=== PATIENT | female | born 1940 | race African-American/Black ===

== ENCOUNTER 2021-09-01 20:07 | Emergency (ER) | payer OTHER, MEDICAID ==
[~2021-09-01] VITALS: Ht 170.2 cm; Wt 54.0 kg
[~2021-09-01 20:07] MED LIST: ACET-3161 PO; AMLO5TAB4 PO; ASPI-986 PO; BIMA2.5D4 EACHEYE; BUSP15TA3 PO; CHOL500010 PO; COMBIGAN; CYCL30DR EACHEYE; FERR-43 PO; GABA-529 PO; LEVO500T2 PO; LOSA100T32 PO; P20 PO; PROP10DR2 EACHEYE; VENL-180 PO
[2021-09-01 21:37] LABS: BASOPHILS % 0.6 % (0.0-2.0); EOSINOPHILS % 0.6 % (0.0-5.0); HEMATOCRIT. 32.1 % (36.0-48.0); HEMOGLOBIN. 11.1 g/dL (12.0-16.0); LYMPHOCYTES % 12.8 % (20.0-50.0); MEAN CORPUSCULAR HEMOGLOBIN 33.2 pg (28.0-32.0); MEAN CORPUSCULAR VOLUME 96.4 fL (81.0-99.0); MEAN PLATELET VOLUME 7.1 fl (7.4-10.4); MONOCYTES % 6.3 % (2.0-8.0); NEUTROPHILS % 79.7 % (40.0-76.0); PLATELET 294 x1000/uL (130-400); RED BLOOD CELL COUNT 3.33 mill/uL (4.2-5.4); RED CELL DISTRIBUTION WIDTH 12.8 % (11.6-14.6)
[2021-09-01 21:42] LABS: CHLORIDE 99 mEq/L (98-107)
[2021-09-01] MEDS ORDERED: SODIUM CHLORIDE 0.9% 250 ML IV ONE (22:30)
[2021-09-02] MEDS ORDERED: ENALAPRIL 1.25MG/ML VIAL 1ML IV NR (02:30)
[2021-09-02] MEDS ORDERED: ENALAPRIL 2.5MG/2ML VIAL 2ML IV ONE (02:30)
[2021-09-02 04:55] VITALS: BP 164/73
[2021-09-02 05:27] LABS: CLARITY URINE CLEAR (CLEAR); COLOR URINE YELLOW (YELLOW); KETONES URINE NEGATIVE (NEGATIVE); LEUKOCYTE ESTERASE URINE NEGATIVE (NEGATIVE); NITRITE URINE NEGATIVE (NEGATIVE); OCCULT BLOOD URINE NEGATIVE (NEGATIVE); PROTEIN URINE TRACE (NEGATIVE); SPECIFIC GRAVITY URINE 1.011 (1.005-1.030)
== END 2021-09-02 05:50 | disposition short-term general hospital (02) ==
LOC: ER 20:07
DX: R55 Syncope and collapse (principal); E86.0 Dehydration; G93.49 Other encephalopathy; F03.90 Unspecified dementia, unspecified severity, without behavioral disturbance, psychotic disturbance, mood disturbance, and anxiety; I10 Essential (primary) hypertension; D64.9 Anemia, unspecified; H40.9 Unspecified glaucoma; Z86.73 Personal history of transient ischemic attack (TIA), and cerebral infarction without residual deficits; Z20.822 Contact with and (suspected) exposure to COVID-19; Z79.82 Long term (current) use of aspirin; Z91.018 Allergy to other foods
CPT/HCPCS: 36415; 70450; 71045; 80053; 81003; 82962; 83880; 84484; 85025; 87086; 87426; 93005; 96361; 96374; 99285; J3490; J7050